=== PATIENT | male | born 2000 | race Caucasian/White ===

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

== ENCOUNTER → 2024-08-23 | Outpatient (CLI) | payer BC, OTHER ==
--- NOTE | 2024-08-23 12:09 | CA ---
Exercise Stress Test Report Name: Anthony Joseph Exam Date: 08/23/2024 10:31 Exam Location: [place] Stress Ht (in): 70 Wt (lb): 185 BSA: 2.02 Ordering Phys: Carmen Borges DO Referring Phys: Ximena Bolden [facility] Technologist: Oj Mayberry Age: 23 Gender: M : 2000 Procedure CPT: Indications: R07.9 CHEST PAIN, UNSPECIFIED ICD-10 Codes: Patient History: Medications: MULTIVITAMIN,,,, MAGNESIUM,,,, IRON,,, Meds past 24 hrs: Pretest Chest Pain: STRESS TEST Ralph Protocol Exercise Duration (min:sec): 13:[address] Depressions (mm): 0 Angina Score: 0 Diaz Score: 13 Resting HR (bpm): 74 Peak HR (bpm): 179 Resting BP (mmHg): 110 / 68 Peak BP (mmHg): 179 / 64 MPHR: 198 Target HR: 168 % MPHR: 90 METS: 13.9 Total Dose: Peak Dose: Atropine: Double Product: 40424 BP Response: Stress Termination: TARGET HR REACHED/MAX EXERTION Stress Symptoms: NO SYMPTOMS Stress Summary: The patient's target heart rate was achieved ECG ANALYSIS Resting ECG: Sinus rhythm. Normal conduction. No arrhythmias. Normal repolarization. Stress ECG: No ECG evidence of ischemia with exercise. CONCLUSIONS Patient falls into low-risk group (DTS >= +5). This associates the patient with an annual CV mortality <= 0.5%. Exercise capacity very good at >[address] segment response to stress. Normal electrocardiographic stress testing with no evidence of stress induced ischemia Dr. Td Ortiz MD (Electronically Signed) Final Date: 23 August 2024 12:08
== END | disposition home or self-care (01) ==
LOC: RADNMMAIN 09:55
PROVIDERS: ATTEND Family Medicine
DX: R07.9 Chest pain, unspecified (principal)
CPT/HCPCS: 93017